=== PATIENT | female | born 1980 | race Caucasian/White ===

== ENCOUNTER 2017-01-28 00:25 | Emergency (ER) | payer SELFPAY ==
[~2017-01-28] VITALS: Ht 170.2 cm; Wt 65.0 kg
[2017-01-28 00:28] VITALS: BP 125/73; PULSE 114; RESP 16; TEMP 100.9; O2SAT 97
[2017-01-28 01:34] VITALS: TEMP 99
[2017-01-28] MEDS ORDERED: ACETAMINOPHEN 500 MG CPLT PO ONE (02:00)
--- NOTE | 2017-01-28 02:09 | PD ---
HPI Chief Complaint: Cold / Flu Symptoms Time Seen by Provider: 02:06 Travel History International Travel<30 days: No Contact w/Intl Traveler<30days: No Traveled to known affect area: No History of Present Illness HPI 36-year-old white female presents to emergency Department with complaints of fever and chills, runny nose, sinus congestion, myalgias, arthralgias more so in the lower back and some dark foul-smelling urine. She denies any nausea vomiting. No abdominal pain or diarrhea. No dysuria or frequency. He does also admit to chronic hip pain. She states it is typical of her pain no significantly worsened than usual. PFSH Past Medical History Narrative Medical Chronic hip dysplasia Medical other: Yes Musculoskeletal: Yes (RT RIB FX 7,8,9,10) Tetanus Vaccination: < 5 Years ?: Not LMP: 01/20/17 : 0 Past Surgical History Narrative Surgical Bilateral hip replacements, right knee osteotomy Social History Alcohol Use: Yes (RARELY) Tobacco Use: No Substance Use: No Allergies-Medications (Allergen,Severity, Reaction): Coded Allergies: Penicillin (Verified Allergy, Severe, Hives, 01/28/17) Reported Meds & Prescriptions Reported Meds & Active Scripts Active No Active Prescriptions or Reported Medications Review of Systems Except as stated in HPI: all other systems reviewed are Neg Physical Exam Narrative GENERAL: Well-developed, well-nourished in no acute distress. Nontoxic appearing. HEAD: Normocephalic, atraumatic. EYES: Pupils equal round and reactive. Extraocular motions intact. No scleral icterus. No injection or drainage. ENT: TMs clear without erythema. The external auditory canals clear. Nose: clear . Posterior pharynx is pink and moist. No tonsillar edema or exudate. Uvula midline. Airway patent. NECK: Trachea midline.Supple, nontender, moves head freely. No central bony tenderness or spasm. CARDIOVASCULAR: Regular rate and rhythm without murmurs, gallops, or rubs. RESPIRATORY: Clear to auscultation. Breath sounds equal bilaterally. No wheezes , rales, or rhonchi. GASTROINTESTINAL: Abdomen soft, non-tender, nondistended. No hepato-splenomegaly , or palpable masses. No guarding. EXTREMITIES: No clubbing, cyanosis, or edema. No joint tenderness, effusion, or edema noted. BACK: Nontender without deformity or crepitance. No flank tenderness. Data Data Last Documented VS Vital Signs Date Time Temp Pulse Resp B/P Pulse Ox O2 Delivery O2 Flow Rate FiO2 01/28/17 01:34 99.0 01/28/17 00:28 114 16 125/73 97 Room Air Orders Urinalysis - C+S If Indicated (01/28/17 01:51) Acetaminophen (Tylenol) (01/28/17 02:00) Urine Culture (01/28/17 02:00) Nitrofurantoin Monohyd Macrocr (Macrobid (01/28/17 02:45) Labs Laboratory Tests Test 01/28/17 02:00 Urine Color YELLOW Urine Turbidity HAZY Urine pH 6.0 Urine Specific [employer] 1.030 Urine Protein 30 mg/dL Urine Glucose (UA) NEG mg/dL Urine Ketones NEG mg/dL Urine Occult Blood NEG Urine Nitrite POS Urine Bilirubin NEG Urine Urobilinogen LESS THAN 2.0 MG/DL Urine Leukocyte Esterase LARGE Urine RBC 5 /hpf Urine WBC 44 /hpf Urine Squamous Epithelial 14 /hpf Cells Urine Transitional Epithelial <1 /hpf Cells Urine Bacteria MOD /hpf Urine Mucus MANY /lpf Microscopic Urinalysis Comment CULTURE INDICATED MDM Medical Decision Making Medical Screen Exam Complete: Yes Emergency Medical Condition: Yes Medical Record Reviewed: Yes Interpretation(s) Laboratory Tests Test 01/28/17 02:00 Urine Color YELLOW Urine Turbidity HAZY Urine pH 6.0 Urine Specific [employer] 1.030 Urine Protein 30 mg/dL Urine Glucose (UA) NEG mg/dL Urine Ketones NEG mg/dL Urine Occult Blood NEG Urine Nitrite POS Urine Bilirubin NEG Urine Urobilinogen LESS THAN 2.0 MG/DL Urine Leukocyte Esterase LARGE Urine RBC 5 /hpf Urine WBC 44 /hpf Urine Squamous Epithelial 14 /hpf Cells Urine Transitional Epithelial <1 /hpf Cells Urine Bacteria MOD /hpf Urine Mucus MANY /lpf Microscopic Urinalysis Comment CULTURE INDICATED Differential Diagnosis Differential diagnosis: Pneumonia, influenza, influenza-like illness, pyelonephritis, UTI Narrative Course Patient is given 1 g of Tylenol by mouth. Urinalysis sent. The patient's urinalysis is positive. She is given Macrobid by mouth. She'll be discharged home with oral Macrobid. This is UTI Diagnosis Primary Impression: UTI (urinary tract infection) Patient Instructions: General Instructions Additional Instructions: Rest. Increase fluids. Macrobid. Tylenol and ibuprofen for any fever or discomfort. Follow-up with a primary care doctor in one week. Return to the ER for any problems. Med/Other Pt SpecificInfo: Prescription(s) given Scripts Nitrofurantoin Monohydrate Macrocrystals (Macrobid)100 Mg [id number] Mg PO BID 10 Days Prov:Kanchan Govea MD 01/28/17 Disposition: 01 DISCHARGE HOME Condition: Stable Ulises Vieira Jan 28, 2017 02:09
[2017-01-28 02:19] LABS: BACTERIA, URINE MOD /hpf; BLOOD, URINE NEG (NEG); COMMENT (UR) CULTURE INDICATED; CULTURE IF INDICATED CULTURE INDICATED; GLUCOSE,URINE NEG (NEG); KETONE, URINE NEG (NEG); MUCUS URINE MANY /lpf (OCC); SQUAMOUS EPITHELIAL CELL URINE 14 /hpf (0-5); TRANSITIONAL EPI CELLS, URINE <1 /hpf; URINE COLOR YELLOW (YELLW/STRAW)
[2017-01-28 02:20] LABS: NITRITE,URINE POS (NEG)
[2017-01-28] MEDS ORDERED: MACR100C2 PO (02:35)
[2017-01-28] MEDS ORDERED: NITROFURANTOIN MONOHYD MACROCR 100 MG CAP PO ONE (02:45)
== END 2017-01-28 02:50 | disposition home or self-care (01) ==
LOC: NEPD 00:25
DX: N39.0 Urinary tract infection, site not specified (principal); B96.20 Unspecified Escherichia coli [E. coli] as the cause of diseases classified elsewhere; R09.89 Other specified symptoms and signs involving the circulatory and respiratory systems; R09.81 Nasal congestion; M79.1 Myalgia; M13.88 Other specified arthritis, other site; M25.559 Pain in unspecified hip; G89.29 Other chronic pain; Z88.0 Allergy status to penicillin
CPT/HCPCS: 81001; 87077; 87086; 87186; 99283

== ENCOUNTER 2017-07-01 19:40 | Emergency (ER) | payer SELFPAY ==
[~2017-07-01] VITALS: Ht 162.6 cm; Wt 82.0 kg
[~2017-07-01 19:40] MED LIST: MACR100C2 PO
[2017-07-01 19:41] VITALS: BP 132/80; PULSE 79; RESP 16; TEMP 98.8; O2SAT 100
[2017-07-01] MEDS ORDERED: IOHEXOL 350 MG/ML 10 ML VIAL (for RAD DIAG) IVCONTRAST ONE (19:41)
--- NOTE | 2017-07-01 20:26 | PD ---
HPI Chief Complaint: Fall Time Seen by Provider: 20:12 Travel History International Travel<30 days: No Contact w/Intl Traveler<30days: No Traveled to known affect area: No History of Present Illness HPI 37-year-old female with history of hip dysplasia, here on vacation, here in the emergency department for evaluation of right chest wall pain after mechanical slip and fall while in the bathroom about 5 hours ago. The patient reports that she struck the right anterior/lateral chest against the edge of the bathtub when she fell. She denies head injury or LOC. No neck or back pain. She has mild right upper and epigastric abdominal discomfort. Chest pain is constant, severe, sharp, worse with movements, palpation, and inspiration. She reports history of right-sided rib fractures several years ago. PFSH Past Medical History Musculoskeletal: Yes (RT RIB FX 7,8,9,10) ?: Not LMP: 3 weeks ago : 0 Social History Alcohol Use: Yes (RARELY) Tobacco Use: No Substance Use: No Allergies-Medications (Allergen,Severity, Reaction): Coded Allergies: penicillin G (Unverified Allergy, Severe, Hives, 07/01/17) Reported Meds & Prescriptions Reported Meds & Active Scripts Active Macrobid (Nitrofurantoin Monohydrate Macrocrystals) 100 Mg Capsule 100 Mg PO BID 10 Days Review of Systems Except as stated in HPI: all other systems reviewed are Neg Physical Exam Narrative GENERAL: Well-developed, well-nourished, no apparent distress. SKIN: Focused skin assessment warm/dry. No lacerations, abrasions, or ecchymosis. HEAD: Atraumatic. Normocephalic. EYES: Pupils equal and round. No scleral icterus. No injection or drainage. ENT: No nasal bleeding or discharge. Mucous membranes pink and moist. NECK: Trachea midline. No JVD. No midline vertebral step-off or tenderness. CARDIOVASCULAR: Regular rate and rhythm. RESPIRATORY: No accessory muscle use. Clear to auscultation. Breath sounds equal bilaterally. GASTROINTESTINAL: Abdomen soft, non-tender, nondistended. Hepatic and splenic margins not palpable. MUSCULOSKELETAL: No obvious deformities. No clubbing. No cyanosis. No edema. Right anterior and lateral chest wall with diffuse tenderness without crepitus, without step-off, without paradoxical chest wall movement. No midline vertebral step-off or tenderness. All joints and extremities are without deformity, without tenderness, with normal range of motion. NEUROLOGICAL: Awake and alert. No obvious cranial nerve deficits. Motor grossly within normal limits. Normal speech. PSYCHIATRIC: Appropriate mood and affect; insight and judgment normal. Data Data Last Documented VS Vital Signs Date Time Temp Pulse Resp B/P (MAP) Pulse Ox O2 Delivery O2 Flow Rate FiO2 07/01/17 21:05 67 20 98 07/01/17 19:41 98.8 132/80 (97) Room Air Orders Orders Complete Blood Count With Diff (07/01/17 20:21) Comprehensive Metabolic Panel (07/01/17 20:21) Prothrombin Time / Inr (Pt) (07/01/17 20:21) Act Partial Throm Time (Ptt) (07/01/17 20:21) Iv Access Insert/Monitor (07/01/17 20:21) Ecg Monitoring (07/01/17 20:21) Oximetry (07/01/17 20:21) Sodium Chloride 0.9% Flush (Ns Flush) (07/01/17 20:30) Ct Thorax/ Chest W Iv Contrast (07/01/17 ) Ct Abd/Pel W Iv Contrast(Rout) (07/01/17 ) Morphine Inj (Morphine Inj) (07/01/17 20:30) Ondansetron Inj (Zofran Inj) (07/01/17 20:30) Chest, Single Ap (07/01/17 ) Ed Urine Pregnancytest Poc (07/01/17 21:01) Iohexol 350 Inj (Omnipaque 350 Inj) (07/01/17 19:41) Hydromorphone Pf Inj (Dilaudid Pf Inj) (07/01/17 22:30) Labs Laboratory Tests Test 07/01/17 20:50 White Blood Count 9.6 TH/MM3 Red Blood Count 4.14 MIL/MM3 Hemoglobin 11.5 GM/DL Hematocrit 34.5 % Mean Corpuscular Volume 83.4 FL Mean Corpuscular Hemoglobin 27.8 PG Mean Corpuscular Hemoglobin Concent 33.4 % Red Cell Distribution Width 14.7 % Platelet Count 337 TH/MM3 Mean Platelet Volume 7.4 FL Neutrophils (%) (Auto) 47.8 % Lymphocytes (%) (Auto) 38.9 % Monocytes (%) (Auto) 9.1 % Eosinophils (%) (Auto) 3.1 % Basophils (%) (Auto) 1.1 % Neutrophils # (Auto) 4.6 TH/MM3 Lymphocytes # (Auto) 3.7 TH/MM3 Monocytes # (Auto) 0.9 TH/MM3 Eosinophils # (Auto) 0.3 TH/MM3 Basophils # (Auto) 0.1 TH/MM3 CBC Comment DIFF FINAL Differential Comment Prothrombin Time 10.1 SEC Prothromb Time International Ratio 1.0 RATIO Activated Partial Thromboplast Time 23.3 SEC Blood Urea Nitrogen 10 MG/DL Creatinine 0.72 MG/DL Random Glucose 103 MG/DL Total Protein 5.8 GM/DL Albumin 2.9 GM/DL Calcium Level 8.1 MG/DL Alkaline Phosphatase 34 U/L Aspartate Amino Transf (AST/SGOT) 16 U/L Alanine Aminotransferase (ALT/SGPT) 20 U/L Total Bilirubin LESS THAN 0.1 MG/DL Sodium Level 140 MEQ/L Potassium Level 4.1 MEQ/L Chloride Level 108 MEQ/L Carbon Dioxide Level 25.8 MEQ/L Anion Gap 6 MEQ/L Estimat Glomerular Filtration Rate 91 ML/MIN [facility] Medical Decision Making Medical Screen Exam Complete: Yes Emergency Medical Condition: Yes Differential Diagnosis Chest wall contusion, rib fractures, hemothorax, pneumothorax, liver laceration , intra-abdominal trauma Narrative Course Vital signs are within normal limits. CBC: WBC 9.6, hemoglobin 11.5, hematocrit 34.5, platelets 337. CMP is unremarkable. CT abdomen pelvis: CONCLUSION: Negative for acute intra-abdominal or intrapelvic injury. Small to moderate hiatal hernia incidentally noted. CT thorax: CONCLUSION: Small intramuscular hematoma of the left serratus anterior. Otherwise negative. There is no fracture. No pneumothorax, hemothorax or other acute cardiopulmonary disease demonstrated. Patient was made aware of all findings. She only experienced mild relief of pain with 4 mg of IV morphine. She will be given a dose of IV Dilaudid 1 mg. She is in no respiratory distress. O2 saturation is between 98 and 100 percent on room air. Plan is to discharge her home with pain medication and an incentive spirometer and have her follow-up with her primary care physician when she returns to [facility] in 3 days. She was informed on when to return to the emergency department. She verbalizes understanding and agreement with plan. Diagnosis Primary Impression: Chest wall contusion Qualified Codes: S20.211A - Contusion of right front wall of thorax, initial encounter Additional Impression: Fall Qualified Codes: W19.XXXA - Unspecified fall, initial encounter Referrals: Primary Care Physician 3 days Additional Instructions: Use incentive spirometer as directed. Follow-up with a primary care physician this week. Return to the emergency department for worsening symptoms or any other concerns. Scripts Oxycodone-Acetaminophen (Percocet) 5-325 mg Tab 1 TAB PO Q6H Y for PAIN, #15 TAB 0 Refills Prov: Teddy Hernandez MD 07/01/17 Disposition: 01 DISCHARGE HOME Condition: Stable Teddy Hernandez MD Jul 01, 2017 20:26
[2017-07-01] MEDS ORDERED: SODIUM CHLORIDE 0.9% FLUSH 10 ML FLUSH IV FLUSH PRN (20:30)
[2017-07-01] MEDS ORDERED: ONDANSETRON HCL 4 MG/2 ML VIAL IV PUSH ONE (20:30)
[2017-07-01] MEDS ORDERED: MORPHINE SULFATE 2 MG/ML INJ IV PUSH ONE (20:30)
[2017-07-01 21:12] LABS: AUTOMATED NEUTROPHIL # 4.6 TH/MM3 (1.8-7.7); BASOPHIL # 0.1 TH/MM3 (0-0.2); BASOPHIL % 1.1 % (0.0-2.0); EOSINOPHIL # 0.3 TH/MM3 (0-0.4); EOSINOPHIL % 3.1 % (0.0-4.0); HEMATOCRIT 34.5 % (35.0-46.0); HEMOGLOBIN 11.5 GM/DL (11.6-15.3); LYMPH % 38.9 % (9.0-44.0); LYMPHOCYTE # 3.7 TH/MM3 (1.0-4.8); MEAN CELL VOLUME 83.4 FL (80.0-100.0); MEAN CORPUSCULAR HEMOGLOBIN 27.8 PG (27.0-34.0); MEAN CORPUSCULAR HGB CONC 33.4 % (32.0-36.0); MEAN PLATELET VOLUME 7.4 FL (7.0-11.0); MONO % 9.1 % (0.0-8.0); MONOCYTE # 0.9 TH/MM3 (0-0.9); NEUT % 47.8 % (16.0-70.0); PLATELET COUNT 337 TH/MM3 (150-450); RED BLOOD COUNT 4.14 MIL/MM3 (4.00-5.30); RED CELL DISTRIBUTION WIDTH 14.7 % (11.6-17.2); WHITE BLOOD COUNT 9.6 TH/MM3 (4.0-11.0)
[2017-07-01 21:19] LABS: PROTHROMBIN TIME - PATIENT 10.1 SEC (9.8-11.6)
[2017-07-01 21:21] LABS: ALBUMIN 2.9 GM/DL (3.4-5.0); AST (GOT) 16 U/L (15-37); BICARBONATE 25.8 MEQ/L (21.0-32.0); BLOOD UREA NITROGEN 10 MG/DL (7-18); CALCIUM 8.1 MG/DL (8.5-10.1); CHLORIDE 108 MEQ/L (98-107); CREATININE 0.72 MG/DL (0.50-1.00); GLOMERULAR FILTRATION RATE 91 ML/MIN (>89); GLUCOSE,RANDOM 103 MG/DL (74-106); SODIUM (NA) 140 MEQ/L (136-145)
[2017-07-01 21:22] LABS: ALT (GPT) 20 U/L (10-53)
[2017-07-01 21:24] LABS: ALKALINE PHOSPHATASE 34 U/L (45-117); TOTAL BILIRUBIN ADULT LESS THAN 0.1 MG/DL (0.2-1.0); TOTAL PROTEIN 5.8 GM/DL (6.4-8.2)
--- NOTE | 2017-07-01 21:28 | RADRPT ---
EXAM DATE/TIME: 07/01/2017 21:10 [facility] COMPARISON: No previous studies available for comparison. INDICATIONS : Left sided breast pain post fall MEDICAL HISTORY : None. SURGICAL HISTORY : None. ENCOUNTER: Initial ACUITY: 1 day PAIN SCORE: 8/10 LOCATION: Left chest FINDINGS: A single view of the chest demonstrates the lungs to be symmetrically aerated without evidence of mas s, infiltrate or effusion. The cardiomediastinal contours are unremarkable. Osseous structures are grossly intact. CONCLUSION: No evidence of acute cardiopulmonary disease. Tomas Schmidt MD on July 01, 2017 at 21:25 Board Certified Radiologist. This report was verified electronically.
--- NOTE | 2017-07-01 22:03 | RADRPT ---
EXAM DATE/TIME: 07/01/2017 21:27 [facility] COMPARISON: CT ABDOMEN & PELVIS W CONTRAST, July 01, 2017, 21:27. CHEST SINGLE AP, July 01, 2017, 21:10. INDICATIONS : Trauma, fell onto right side. Right sided chest pain. IV CONTRAST: 95 cc Omnipaque 350 (iohexol) IV ; Cumulative dose for multiple exams. RADIATION DOSE: 9.22 CTDIvol (mGy) ; Combined studies - Thorax/Abdomen/Pelvis MEDICAL HISTORY : Rib fractures. SURGICAL HISTORY : Hip surgery. ENCOUNTER: Initial ACUITY: 1 day PAIN SCALE: 10/10 LOCATION: Right chest TECHNIQUE: Volumetric scanning of the chest was performed. Using automated exposure control and adjustment of t he mA and/or kV according to patient size, radiation dose was kept as low as reasonably achievable to obtain optimal diagnostic quality images. DICOM format image data is available electronically for review and comparison. Follow-up recommendations for detected pulmonary nodules are based at a minimum on nodule size and pa tient risk factors according to Fleischner Society Guidelines. FINDINGS: LUNGS: There is no consolidation or pneumothorax. No concerning pulmonary nodule is visualized. PLEURA: There is no pleural thickening or pleural effusion. MEDIASTINUM: The heart and great vessels demonstrate no acute abnormality. There is no mediastinal or hilar lymph adenopathy. AXILLAE: Within normal limits. No lymphadenopathy. SKELETAL: No fracture of the visualized osseous structures. There is a small hematoma of left serratus anterior overlying the lateral portions of the left fifth, sixth, seventh and eighth ribs, series 602 image 6 9. No evidence of active bleeding. MISCELLANEOUS: Moderate-sized hiatal hernia. CONCLUSION: Small intramuscular hematoma of the left serratus anterior. Otherwise negative. There is no fracture. No pneumothorax, hemothorax or other acute cardiopulmonary disease demonstrated. Tomas Schmidt MD on July 01, 2017 at 21:57 Board Certified Radiologist. This report was verified electronically.
--- NOTE | 2017-07-01 22:07 | RADRPT ---
EXAM DATE/TIME: 07/01/2017 21:27 [facility] COMPARISON: No previous studies available for comparison. INDICATIONS : Trauma, fell onto right side. Right sided pain. IV CONTRAST: 95 cc Omnipaque 350 (iohexol) IV ; Cumulative dose for multiple exams. ORAL CONTRAST: No oral contrast ingested. RADIATION DOSE: 9.22 CTDIvol (mGy) ; Combined studies - Thorax/Abdomen/Pelvis MEDICAL HISTORY : Rib fractures. SURGICAL HISTORY : Hip surgery. ENCOUNTER: Initial ACUITY: 1 day PAIN SCALE: 10/10 LOCATION: Right abdomen TECHNIQUE: Volumetric scanning of the abdomen and pelvis was performed. Using automated exposure control and ad justment of the mA and/or kV according to patient size, radiation dose was kept as low as reasonably achievable to obtain optimal diagnostic quality images. DICOM format image data is available electro nically for review and comparison. FINDINGS: LOWER LUNGS: The visualized lower lungs are clear. LIVER: Homogeneous density without lesion. There is no dilation of the biliary tree. No calcified gallston es. SPLEEN: Normal size without lesion. PANCREAS: Within normal limits. KIDNEYS: Normal in size and shape. There is no mass, stone or hydronephrosis. ADRENAL GLANDS: Within normal limits. VASCULAR: There is no aortic aneurysm. BOWEL/MESENTERY: The stomach, small bowel, and colon demonstrate no acute abnormality. There is no free intraperitone al air or fluid. Small to moderate hiatal hernia. ABDOMINAL WALL: Within normal limits. RETROPERITONEUM: There is no lymphadenopathy. BLADDER: No wall thickening or mass. REPRODUCTIVE: Within normal limits. INGUINAL: There is no lymphadenopathy or hernia. MUSCULOSKELETAL: No acute bony abnormality demonstrated. There is evidence of previous left total hip arthroplasty wit h associated metallic streak artifact, grossly unremarkable. CONCLUSION: Negative for acute intra-abdominal or intrapelvic injury. Small to moderate hiatal hernia incidentall y noted. Tomas Schmidt MD on July 01, 2017 at 22:01 Board Certified Radiologist. This report was verified electronically.
[2017-07-01] MEDS ORDERED: PERC5TAB12 PO (22:26)
[2017-07-01] MEDS ORDERED: HYDROmorphone HCL PF 2 MG/ML VIAL IV PUSH ONE (22:30)
[2017-07-01 22:54] VITALS: BP 113/70; PULSE 69; RESP 20; O2SAT 99
[2017-07-01 22:57] VITALS: BP 114/64
== END 2017-07-01 23:12 | disposition home or self-care (01) ==
LOC: NEPD 19:40
DX: S20.211A Contusion of right front wall of thorax, initial encounter (principal); K44.9 Diaphragmatic hernia without obstruction or gangrene; W01.0XXA Fall on same level from slipping, tripping and stumbling without subsequent striking against object, initial encounter; Z88.0 Allergy status to penicillin
CPT/HCPCS: 71045; 71260; 74177; 80053; 84703; 85025; 85610; 85730; 94150; 96374; 96375; 99285; J1170; J2270; J2405; Q9967